=== PATIENT | male | born 1940 | race Caucasian/White ===

== ENCOUNTER → 2023-10-22 11:19 | Outpatient (REF) | payer MEDICARE, SELFPAY ==
[2023-10-22 12:04] LABS: % Basophils 1.2 % (0-2); % Eosinophils 4.5 % (0-6); % Immature Granulocytes 0.4 % (0-0.5); % Lymphocytes 26.8 % (20.5-51.1); % Monocytes 8.2 % (1.7-9.3); % Neutrophils 58.9 % (42.2-75.2); Absolute Basophils 0.1 10^3/uL (0-0.2); Absolute Eosinophils 0.2 10^3/uL (0-0.7); Absolute Lymphocytes 1.4 10^3/uL (1.2-3.4); Absolute Monocytes 0.4 10^3/uL (0.1-0.6); Hematocrit 30.1 % (39.0-52.0); Hemoglobin 9.5 g/dL (13.0-18.0); Mean Corp Hgb Conc. 31.6 g/dL (33.0-37.0); Mean Corpuscular Hgb 30.3 pg (27.0-31.0); Mean Corpuscular Volume 95.9 fL (80.0-94.0); Mean Platelet Volume 9.9 fL (7.4-10.4); Nucleated Red Blood Cells % 0 % (-); Platelet Count 225 10^3/uL (130-400); Red Blood Cell Count 3.14 10^6/uL (4.70-6.10); Red Cell Dist. Width 13.8 % (11.5-14.5); White Blood Cell Count 5.1 10^3/uL (4.8-10.8)
[2023-10-22 12:31] LABS: ALT (SGPT) 17 U/L (0-50); AST (SGOT) 23 U/L (17-59); Alkaline Phosphatase 128 U/L (38-126); Blood Urea Nitrogen 47 mg/dl (9-20); Calcium 9.3 mg/dl (8.4-10.2); Carbon Dioxide 24 mmol/L (22-30); Chloride 105 mmol/L (98-107); Glucose 87 mg/dl (70-99); Sodium 139 mmol/L (135-145); Total Bilirubin 0.3 mg/dl (0.2-1.3); Total Protein 6.7 g/dl (6.3-8.2); eGFR 30.28
[2023-10-22 12:49] LABS: Free T4 0.87 ng/dl (0.78-2.19); Vitamin D, 25-OH*** 62.2 ng/mL (30-80)
[2023-10-22 13:03] LABS: PSA, Total - Diagnostic 3.86 ng/ml (0.0-4.0); TSH 1.89 uIU/ml (0.47-4.68)
[2023-10-22 13:39] LABS: Folate 14.6 ng/ml (2.76-20); Vitamin B12 537 pg/ml (239-931)
[2023-10-24 12:09] LABS: % Free Testosterone 0.6 % (1.6-2.9); Free Testosterone 10 pg/mL (47-244); Sex Hormone Binding Globulin 141 nmol/L (19-76); Total Testosterone 162 ng/dL (300-720)
== END ==
LOC: REG 11:19
PROVIDERS: ATTENDING PHYSICIAN Internal Medicine Endocrinology, Diabetes & Metabolism; FAMILY PHYSICIAN Internal Medicine; OTHER PHYSICIAN Specialist; REFERRING PHYSICIAN Internal Medicine Cardiovascular Disease
DX: I10 Essential (primary) hypertension (principal); Z85.038 Personal history of other malignant neoplasm of large intestine; N18.32 Chronic kidney disease, stage 3b; N40.0 Benign prostatic hyperplasia without lower urinary tract symptoms
CPT/HCPCS: 36415; 80053; 82306; 82607; 82746; 84153; 84270; 84402; 84403; 84439; 84443; 85025

== ENCOUNTER → 2023-11-15 09:57 | Outpatient (REF) | payer MEDICARE, SELFPAY ==
[2023-11-15 12:39] LABS: Glycohemoglobin (HgbA1c) 5.6 % (4.0-5.6)
== END ==
LOC: REG 09:57
PROVIDERS: ATTENDING PHYSICIAN Orthopaedic Surgery Adult Reconstructive Orthopaedic Surgery; FAMILY PHYSICIAN Internal Medicine
DX: R73.09 Other abnormal glucose (principal)
CPT/HCPCS: 36415; 83036

== ENCOUNTER → 2023-11-27 10:21 | Outpatient (REF) | payer MEDICARE, SELFPAY ==
[2023-11-27 11:18] LABS: % Basophils 1.5 % (0-2); % Eosinophils 3.8 % (0-6); % Monocytes 7.8 % (1.7-9.3); % Neutrophils 57.9 % (42.2-75.2); Absolute Basophils 0.1 10^3/uL (0-0.2); Absolute Eosinophils 0.2 10^3/uL (0-0.7); Absolute Lymphocytes 1.4 10^3/uL (1.2-3.4); Absolute Monocytes 0.4 10^3/uL (0.1-0.6); Absolute Neutrophils 2.8 10^3/uL (1.4-6.5); Hematocrit 29.5 % (39.0-52.0); Hemoglobin 9.6 g/dL (13.0-18.0); Mean Corp Hgb Conc. 32.5 g/dL (33.0-37.0); Mean Corpuscular Hgb 30.5 pg (27.0-31.0); Mean Corpuscular Volume 93.7 fL (80.0-94.0); Mean Platelet Volume 10.5 fL (7.4-10.4); Nucleated Red Blood Cells % 0 % (-); Platelet Count 200 10^3/uL (130-400); Red Blood Cell Count 3.15 10^6/uL (4.70-6.10); Red Cell Dist. Width 13.6 % (11.5-14.5); White Blood Cell Count 4.8 10^3/uL (4.8-10.8)
[2023-11-27 12:35] LABS: Albumin 3.6 g/dl (3.5-5.0); Blood Urea Nitrogen 35 mg/dl (9-20); Calcium 9.4 mg/dl (8.4-10.2); Carbon Dioxide 26 mmol/L (22-30); Chloride 109 mmol/L (98-107); Glucose 91 mg/dl (70-99); Iron 115 ug/dl (49-181); Phosphorus 4.2 mg/dl (2.5-4.5); Potassium 4.4 mmol/L (3.5-5.1); Sodium 142 mmol/L (135-145); eGFR 27.15
[2023-11-27 12:37] LABS: Calcium 9.4 mg/dl (8.4-10.2); Phosphorus 4.2 mg/dl (2.5-4.5)
[2023-11-27 12:44] LABS: Percent Saturation 57 % (20-50); Total Iron Binding Capacity 200 ug/dl (261-462)
[2023-11-28 16:47] LABS: Alk Phos Bone Specific Results 15.6 ug/L (6.5-20.1)
[2023-11-29 01:45] LABS: Vitamin D 1,25 Dihydroxy 14.9 pg/mL (19.9-79.3)
[2023-11-29 18:11] LABS: Intact PTH 63.1 pg/ml (13.6-85.8)
== END ==
LOC: REG 10:21
PROVIDERS: ATTENDING PHYSICIAN Specialist; FAMILY PHYSICIAN Internal Medicine Endocrinology, Diabetes & Metabolism
DX: D64.9 Anemia, unspecified (principal); N18.32 Chronic kidney disease, stage 3b; I10 Essential (primary) hypertension; N26.9 Renal sclerosis, unspecified; N40.1 Benign prostatic hyperplasia with lower urinary tract symptoms; R35.1 Nocturia; M25.60 Stiffness of unspecified joint, not elsewhere classified; I35.0 Nonrheumatic aortic (valve) stenosis; Z87.81 Personal history of (healed) traumatic fracture; N17.9 Acute kidney failure, unspecified; M81.0 Age-related osteoporosis without current pathological fracture
CPT/HCPCS: 36415; 80069; 82652; 83002; 83540; 83550; 83970; 84075; 84100; 84146; 84155; 84165; 85025

== ENCOUNTER → 2023-12-08 10:13 | Outpatient (REF) | payer MEDICARE, SELFPAY ==
[2023-12-08 11:10] LABS: 24 Hour Urine Total Volume 600 ml
[2023-12-08 12:11] LABS: 24 Hour Urine Calcium 7.8 mg/day; 24 Hour Urine Creatinine 0.247 gm/day (1.0-2.0); Urine Calcium 1.3 mg/dl
== END ==
LOC: REG 10:13
PROVIDERS: ATTENDING PHYSICIAN Internal Medicine Endocrinology, Diabetes & Metabolism
DX: M81.0 Age-related osteoporosis without current pathological fracture (principal)
CPT/HCPCS: 81050; 82340; 82570

== ENCOUNTER → 2023-12-23 13:24 | Outpatient (REF) | payer MEDICARE, SELFPAY | LOC: HWRAD 13:24 | PROVIDERS: ATTENDING PHYSICIAN Specialist; FAMILY PHYSICIAN Internal Medicine | DX: I10 Essential (primary) hypertension (principal); D50.0 Iron deficiency anemia secondary to blood loss (chronic); R60.9 Edema, unspecified; N18.32 Chronic kidney disease, stage 3b | CPT/HCPCS: 76770 ==

== ENCOUNTER → 2023-12-24 08:32 | Outpatient (REF) | payer MEDICARE, SELFPAY | LOC: HWRAD 08:32 | PROVIDERS: ATTENDING PHYSICIAN Internal Medicine Endocrinology, Diabetes & Metabolism; FAMILY PHYSICIAN Internal Medicine | DX: M81.0 Age-related osteoporosis without current pathological fracture (principal) | CPT/HCPCS: 76700 ==

== ENCOUNTER → 2024-01-10 09:30 | Outpatient (REF) | payer MEDICARE, SELFPAY ==
[2024-01-10 11:23] LABS: Calcium 9.1 mg/dl (8.4-10.2)
[2024-01-10 11:52] LABS: Intact PTH 93.9 pg/ml (13.6-85.8)
== END ==
LOC: REG 09:30
PROVIDERS: ATTENDING PHYSICIAN Internal Medicine Endocrinology, Diabetes & Metabolism; FAMILY PHYSICIAN Internal Medicine
DX: M81.0 Age-related osteoporosis without current pathological fracture (principal)
CPT/HCPCS: 36415; 83970

== ENCOUNTER → 2024-01-19 15:43 | Outpatient (REF) | payer MEDICARE, SELFPAY ==
[2024-01-19 17:33] LABS: % Eosinophils 4.8 % (0-6); % Immature Granulocytes 0.9 % (0-0.5); % Lymphocytes 18.7 % (20.5-51.1); % Monocytes 11.2 % (1.7-9.3); % Neutrophils 63.4 % (42.2-75.2); Absolute Basophils 0.1 10^3/uL (0-0.2); Absolute Eosinophils 0.3 10^3/uL (0-0.7); Absolute Immature Granulocytes 0.1 10^3/uL (0-0.05); Absolute Lymphocytes 1.3 10^3/uL (1.2-3.4); Absolute Monocytes 0.8 10^3/uL (0.1-0.6); Absolute Neutrophils 4.3 10^3/uL (1.4-6.5); Hematocrit 22.5 % (39.0-52.0); Hemoglobin 7.6 g/dL (13.0-18.0); Mean Corp Hgb Conc. 33.8 g/dL (33.0-37.0); Mean Corpuscular Hgb 30.3 pg (27.0-31.0); Mean Corpuscular Volume 89.6 fL (80.0-94.0); Nucleated Red Blood Cells % 0 % (-); Platelet Count 312 10^3/uL (130-400); Red Blood Cell Count 2.51 10^6/uL (4.70-6.10); Red Cell Dist. Width 14.7 % (11.5-14.5); White Blood Cell Count 6.7 10^3/uL (4.8-10.8)
[2024-01-19 17:57] LABS: Albumin 3.5 g/dl (3.5-5.0); Blood Urea Nitrogen 45 mg/dl (9-20); Calcium 8.9 mg/dl (8.4-10.2); Carbon Dioxide 19 mmol/L (22-30); Chloride 110 mmol/L (98-107); Glucose 108 mg/dl (70-99); Iron 48 ug/dl (49-181); Phosphorus 4.3 mg/dl (2.5-4.5); Potassium 4.8 mmol/L (3.5-5.1); Sodium 139 mmol/L (135-145); eGFR 23.43
[2024-01-19 18:06] LABS: Percent Saturation 26 % (20-50); Total Iron Binding Capacity 179 ug/dl (261-462)
== END ==
LOC: REG 15:43
PROVIDERS: ATTENDING PHYSICIAN Specialist; FAMILY PHYSICIAN Internal Medicine
DX: N17.9 Acute kidney failure, unspecified (principal); N18.32 Chronic kidney disease, stage 3b
CPT/HCPCS: 36415; 80069; 83540; 83550; 83970; 85025

== ENCOUNTER → 2024-01-30 13:17 | Outpatient (REF) | payer MEDICARE, SELFPAY ==
[2024-01-30 14:50] LABS: % Basophils 1.8 % (0-2); % Eosinophils 3.8 % (0-6); % Immature Granulocytes 0.4 % (0-0.5); % Lymphocytes 16.3 % (20.5-51.1); % Monocytes 7.2 % (1.7-9.3); % Neutrophils 70.5 % (42.2-75.2); Absolute Basophils 0.1 10^3/uL (0-0.2); Absolute Eosinophils 0.2 10^3/uL (0-0.7); Absolute Lymphocytes 0.9 10^3/uL (1.2-3.4); Absolute Monocytes 0.4 10^3/uL (0.1-0.6); Absolute Neutrophils 3.9 10^3/uL (1.4-6.5); Hematocrit 21.3 % (39.0-52.0); Hemoglobin 7.2 g/dL (13.0-18.0); Mean Corp Hgb Conc. 33.8 g/dL (33.0-37.0); Mean Corpuscular Hgb 30.6 pg (27.0-31.0); Mean Corpuscular Volume 90.6 fL (80.0-94.0); Mean Platelet Volume 9.4 fL (7.4-10.4); Nucleated Red Blood Cells % 0 % (-); Platelet Count 452 10^3/uL (130-400); Red Blood Cell Count 2.35 10^6/uL (4.70-6.10); Red Cell Dist. Width 15.1 % (11.5-14.5); White Blood Cell Count 5.6 10^3/uL (4.8-10.8)
[2024-01-30 15:32] LABS: Blood Urea Nitrogen 32 mg/dl (9-20); Calcium 8.9 mg/dl (8.4-10.2); Carbon Dioxide 25 mmol/L (22-30); Chloride 107 mmol/L (98-107); Glucose 125 mg/dl (70-99); Potassium 4.8 mmol/L (3.5-5.1); Sodium 138 mmol/L (135-145); eGFR 25.63
[2024-01-31 11:39] LABS: Intact PTH 58.8 pg/ml (13.6-85.8)
== END ==
LOC: REG 13:17
PROVIDERS: ATTENDING PHYSICIAN Specialist; FAMILY PHYSICIAN Internal Medicine
DX: N26.9 Renal sclerosis, unspecified (principal); E78.2 Mixed hyperlipidemia; I10 Essential (primary) hypertension; N18.4 Chronic kidney disease, stage 4 (severe); D50.0 Iron deficiency anemia secondary to blood loss (chronic)
CPT/HCPCS: 36415; 80048; 83970; 85025

== ENCOUNTER → 2024-03-15 12:15 | Outpatient (REF) | payer MEDICARE, SELFPAY ==
[2024-03-15 13:26] LABS: % Basophils 1.2 % (0-2); % Immature Granulocytes 0.2 % (0-0.5); % Lymphocytes 26.9 % (20.5-51.1); % Monocytes 9.3 % (1.7-9.3); % Neutrophils 58.4 % (42.2-75.2); Absolute Basophils 0.1 10^3/uL (0-0.2); Absolute Eosinophils 0.2 10^3/uL (0-0.7); Absolute Lymphocytes 1.2 10^3/uL (1.2-3.4); Absolute Monocytes 0.4 10^3/uL (0.1-0.6); Absolute Neutrophils 2.5 10^3/uL (1.4-6.5); Hemoglobin 8.5 g/dL (13.0-18.0); Mean Corp Hgb Conc. 32.7 g/dL (33.0-37.0); Mean Corpuscular Hgb 32.2 pg (27.0-31.0); Mean Corpuscular Volume 98.5 fL (80.0-94.0); Mean Platelet Volume 10.6 fL (7.4-10.4); Nucleated Red Blood Cells % 0 % (-); Platelet Count 198 10^3/uL (130-400); Red Blood Cell Count 2.64 10^6/uL (4.70-6.10); White Blood Cell Count 4.3 10^3/uL (4.8-10.8)
[2024-03-15 15:35] LABS: ALT (SGPT) 17 U/L (0-50); AST (SGOT) 26 U/L (17-59); Albumin 3.7 g/dl (3.5-5.0); Alkaline Phosphatase 89 U/L (38-126); Blood Urea Nitrogen 39 mg/dl (9-20); Calcium 7.3 mg/dl (8.4-10.2); Carbon Dioxide 20 mmol/L (22-30); Chloride 113 mmol/L (98-107); Glucose 109 mg/dl (70-99); Potassium 5.7 mmol/L (3.5-5.1); Sodium 143 mmol/L (135-145); Total Bilirubin 0.4 mg/dl (0.2-1.3); Total Protein 6.3 g/dl (6.3-8.2); eGFR 30.09
== END ==
LOC: REG 12:15
PROVIDERS: ATTENDING PHYSICIAN Internal Medicine Cardiovascular Disease; FAMILY PHYSICIAN Internal Medicine
DX: D50.0 Iron deficiency anemia secondary to blood loss (chronic) (principal)
CPT/HCPCS: 36415; 80053; 85025

== ENCOUNTER → 2024-03-26 07:31 | Outpatient (REF) | payer MEDICARE, SELFPAY | LOC: RAD 07:31 | PROVIDERS: ATTENDING PHYSICIAN Internal Medicine Cardiovascular Disease; FAMILY PHYSICIAN Internal Medicine | DX: I71.21 Aneurysm of the ascending aorta, without rupture (principal) | CPT/HCPCS: 76770 ==

== ENCOUNTER → 2024-03-27 10:32 | Outpatient (REF) | payer MEDICARE, SELFPAY ==
[2024-03-27 11:37] LABS: % Basophils 1.7 % (0-2); % Eosinophils 3.4 % (0-6); % Immature Granulocytes 0.3 % (0-0.5); % Lymphocytes 31.9 % (20.5-51.1); % Monocytes 6.6 % (1.7-9.3); % Neutrophils 56.1 % (42.2-75.2); Absolute Basophils 0.1 10^3/uL (0-0.2); Absolute Eosinophils 0.1 10^3/uL (0-0.7); Absolute Lymphocytes 1.1 10^3/uL (1.2-3.4); Absolute Monocytes 0.2 10^3/uL (0.1-0.6); Hematocrit 27.6 % (39.0-52.0); Hemoglobin 8.9 g/dL (13.0-18.0); Mean Corp Hgb Conc. 32.2 g/dL (33.0-37.0); Mean Corpuscular Hgb 30.5 pg (27.0-31.0); Mean Corpuscular Volume 94.5 fL (80.0-94.0); Mean Platelet Volume 10.2 fL (7.4-10.4); Nucleated Red Blood Cells % 0 % (-); Platelet Count 218 10^3/uL (130-400); Red Blood Cell Count 2.92 10^6/uL (4.70-6.10); Red Cell Dist. Width 14.6 % (11.5-14.5); White Blood Cell Count 3.5 10^3/uL (4.8-10.8)
[2024-03-27 12:02] LABS: Albumin 3.8 g/dl (3.5-5.0); Blood Urea Nitrogen 31 mg/dl (9-20); Calcium 7.8 mg/dl (8.4-10.2); Carbon Dioxide 16 mmol/L (22-30); Chloride 114 mmol/L (98-107); Glucose 99 mg/dl (70-99); Phosphorus 3.5 mg/dl (2.5-4.5); Potassium 5.7 mmol/L (3.5-5.1); Sodium 143 mmol/L (135-145); eGFR 28.46
[2024-03-28 23:17] LABS: Erythropoietin (EPO) 10 mU/mL (4-27)
== END ==
LOC: REG 10:32
PROVIDERS: ATTENDING PHYSICIAN Specialist; FAMILY PHYSICIAN Internal Medicine; REFERRING PHYSICIAN Internal Medicine Cardiovascular Disease
DX: N18.32 Chronic kidney disease, stage 3b (principal); E87.5 Hyperkalemia; D64.9 Anemia, unspecified
CPT/HCPCS: 36415; 80069; 82668; 85025

== ENCOUNTER → 2024-06-07 15:18 | Outpatient (REF) | payer MEDICARE, SELFPAY ==
[2024-06-07 15:22] LABS: % Basophils 0.7 % (0-2); % Eosinophils 3.5 % (0-6); % Immature Granulocytes 0.5 % (0-0.5); % Monocytes 10.6 % (1.7-9.3); % Neutrophils 47.7 % (42.2-75.2); Absolute Eosinophils 0.1 10^3/uL (0-0.7); Absolute Lymphocytes 1.5 10^3/uL (1.2-3.4); Absolute Monocytes 0.4 10^3/uL (0.1-0.6); Absolute Neutrophils 1.9 10^3/uL (1.4-6.5); Hematocrit 28.8 % (39.0-52.0); Hemoglobin 9.2 g/dL (13.0-18.0); Mean Corp Hgb Conc. 31.9 g/dL (33.0-37.0); Mean Corpuscular Hgb 30.7 pg (27.0-31.0); Mean Platelet Volume 9.9 fL (7.4-10.4); Nucleated Red Blood Cells % 0 % (-); Platelet Count 178 10^3/uL (130-400); Red Cell Dist. Width 14.6 % (11.5-14.5); White Blood Cell Count 4.1 10^3/uL (4.8-10.8)
[2024-06-07 15:46] LABS: Blood Urea Nitrogen 41 mg/dl (9-20); Iron 110 ug/dl (49-181)
[2024-06-07 15:55] LABS: Percent Saturation 53 % (20-50); Total Iron Binding Capacity 204 ug/dl (261-462)
[2024-06-07 16:21] LABS: Ferritin 91.8 ng/ml (17.9-464.0)
== END ==
LOC: OIDL 15:18
PROVIDERS: ATTENDING PHYSICIAN Internal Medicine Hematology & Oncology
DX: D63.1 Anemia in chronic kidney disease (principal); D72.810 Lymphocytopenia; D50.0 Iron deficiency anemia secondary to blood loss (chronic); N18.4 Chronic kidney disease, stage 4 (severe)
CPT/HCPCS: 82565; 82728; 83540; 83550; 84520; 85025

== ENCOUNTER → 2024-06-18 11:35 | Outpatient (REF) | payer MEDICARE, SELFPAY ==
[2024-06-18 14:52] LABS: % Basophils 1.3 % (0-2); % Immature Granulocytes 0.2 % (0-0.5); % Lymphocytes 24.9 % (20.5-51.1); % Monocytes 8.6 % (1.7-9.3); Absolute Basophils 0.1 10^3/uL (0-0.2); Absolute Eosinophils 0.2 10^3/uL (0-0.7); Absolute Lymphocytes 1.1 10^3/uL (1.2-3.4); Absolute Monocytes 0.4 10^3/uL (0.1-0.6); Absolute Neutrophils 2.8 10^3/uL (1.4-6.5); Hematocrit 29.1 % (39.0-52.0); Hemoglobin 9.3 g/dL (13.0-18.0); Mean Corpuscular Hgb 31.7 pg (27.0-31.0); Mean Corpuscular Volume 99.3 fL (80.0-94.0); Mean Platelet Volume 9.5 fL (7.4-10.4); Nucleated Red Blood Cells % 0 % (-); Platelet Count 257 10^3/uL (130-400); Red Blood Cell Count 2.93 10^6/uL (4.70-6.10); Red Cell Dist. Width 16.7 % (11.5-14.5); White Blood Cell Count 4.5 10^3/uL (4.8-10.8)
[2024-06-18 15:12] LABS: Albumin 4.1 g/dl (3.5-5.0); Blood Urea Nitrogen 47 mg/dl (9-20); Calcium 8.3 mg/dl (8.4-10.2); Carbon Dioxide 18 mmol/L (22-30); Chloride 111 mmol/L (98-107); Glucose 79 mg/dl (70-99); Phosphorus 3.7 mg/dl (2.5-4.5); Potassium 5.4 mmol/L (3.5-5.1); Sodium 141 mmol/L (135-145); eGFR 25.63
[2024-06-19 08:44] LABS: Glycohemoglobin (HgbA1c) 5.1 % (4.0-5.6)
== END ==
LOC: REG 11:35
PROVIDERS: ATTENDING PHYSICIAN Orthopaedic Surgery Adult Reconstructive Orthopaedic Surgery; FAMILY PHYSICIAN Internal Medicine Hematology & Oncology; OTHER PHYSICIAN Internal Medicine; REFERRING PHYSICIAN Specialist
DX: R73.09 Other abnormal glucose (principal); D63.1 Anemia in chronic kidney disease; D72.810 Lymphocytopenia; D50.0 Iron deficiency anemia secondary to blood loss (chronic); N18.4 Chronic kidney disease, stage 4 (severe)
CPT/HCPCS: 36415; 80069; 83036; 83970; 85025

== ENCOUNTER → 2024-07-03 09:13 | Outpatient (REF) | payer MEDICARE, SELFPAY ==
[2024-07-03 10:08] LABS: Hematocrit 34.4 % (39.0-52.0); Hemoglobin 11.2 g/dL (13.0-18.0); Mean Corp Hgb Conc. 32.6 g/dL (33.0-37.0); Mean Corpuscular Hgb 32.4 pg (27.0-31.0); Mean Corpuscular Volume 99.4 fL (80.0-94.0); Mean Platelet Volume 9.7 fL (7.4-10.4); Platelet Count 196 10^3/uL (130-400); Red Blood Cell Count 3.46 10^6/uL (4.70-6.10); White Blood Cell Count 4.1 10^3/uL (4.8-10.8)
[2024-07-03 10:40] LABS: Blood Urea Nitrogen 42 mg/dl (9-20); Calcium 7.6 mg/dl (8.4-10.2); Carbon Dioxide 24 mmol/L (22-30); Chloride 112 mmol/L (98-107); Glucose 92 mg/dl (70-99); Phosphorus 3.9 mg/dl (2.5-4.5); Potassium 5.1 mmol/L (3.5-5.1); Sodium 143 mmol/L (135-145); eGFR 25.63
[2024-07-03 10:52] LABS: Intact PTH 563.4 pg/ml (13.6-85.8)
== END ==
LOC: REG 09:13
PROVIDERS: ATTENDING PHYSICIAN Specialist; FAMILY PHYSICIAN Internal Medicine; REFERRING PHYSICIAN Internal Medicine Hematology & Oncology
DX: N18.4 Chronic kidney disease, stage 4 (severe) (principal); D63.1 Anemia in chronic kidney disease; D72.810 Lymphocytopenia; D50.0 Iron deficiency anemia secondary to blood loss (chronic)
CPT/HCPCS: 36415; 80069; 83970; 85027

== ENCOUNTER → 2024-07-17 09:38 | Outpatient (REF) | payer MEDICARE, SELFPAY ==
[2024-07-17 10:47] LABS: Hematocrit 30.7 % (39.0-52.0); Hemoglobin 10.1 g/dL (13.0-18.0); Mean Corp Hgb Conc. 32.9 g/dL (33.0-37.0); Mean Corpuscular Hgb 32.6 pg (27.0-31.0); Mean Platelet Volume 10.2 fL (7.4-10.4); Platelet Count 160 10^3/uL (130-400); Red Cell Dist. Width 16.1 % (11.5-14.5); White Blood Cell Count 4.1 10^3/uL (4.8-10.8)
[2024-07-17 10:57] LABS: Albumin 3.8 g/dl (3.5-5.0); Blood Urea Nitrogen 51 mg/dl (9-20); Calcium 7.9 mg/dl (8.4-10.2); Carbon Dioxide 19 mmol/L (22-30); Chloride 114 mmol/L (98-107); Glucose 96 mg/dl (70-99); Phosphorus 4.1 mg/dl (2.5-4.5); Sodium 141 mmol/L (135-145); eGFR 25.63
[2024-07-17 11:03] LABS: Potassium 4.8 mmol/L (3.5-5.1)
[2024-07-17 11:06] LABS: Intact PTH 553.2 pg/ml (13.6-85.8)
== END ==
LOC: REG 09:38
PROVIDERS: ATTENDING PHYSICIAN Internal Medicine Hematology & Oncology; FAMILY PHYSICIAN Internal Medicine; REFERRING PHYSICIAN Specialist
DX: D63.1 Anemia in chronic kidney disease (principal); D72.810 Lymphocytopenia; D50.0 Iron deficiency anemia secondary to blood loss (chronic); N18.4 Chronic kidney disease, stage 4 (severe); R79.89 Other specified abnormal findings of blood chemistry; I10 Essential (primary) hypertension; D72.819 Decreased white blood cell count, unspecified
CPT/HCPCS: 36415; 80069; 83970; 85014; 85018; 85027

== ENCOUNTER → 2024-08-05 11:18 | Outpatient (REF) | payer MEDICARE, SELFPAY ==
[2024-08-05 12:33] LABS: % Basophils 0.5 % (0-2); % Eosinophils 0.5 % (0-6); % Immature Granulocytes 0.5 % (0-0.5); % Lymphocytes 6.8 % (20.5-51.1); % Monocytes 8.1 % (1.7-9.3); % Neutrophils 83.6 % (42.2-75.2); Absolute Lymphocytes 0.5 10^3/uL (1.2-3.4); Absolute Monocytes 0.6 10^3/uL (0.1-0.6); Absolute Neutrophils 6.7 10^3/uL (1.4-6.5); Mean Corpuscular Hgb 31.9 pg (27.0-31.0); Mean Corpuscular Volume 99.6 fL (80.0-94.0); Mean Platelet Volume 10.3 fL (7.4-10.4); Nucleated Red Blood Cells % 0 % (-); Platelet Count 149 10^3/uL (130-400); Red Blood Cell Count 2.51 10^6/uL (4.70-6.10); Red Cell Dist. Width 15.7 % (11.5-14.5)
[2024-08-05 13:01] LABS: Albumin 3.3 g/dl (3.5-5.0); Blood Urea Nitrogen 56 mg/dl (9-20); Carbon Dioxide 20 mmol/L (22-30); Chloride 109 mmol/L (98-107); Glucose 125 mg/dl (70-99); Phosphorus 2.9 mg/dl (2.5-4.5); Potassium 4.4 mmol/L (3.5-5.1); Sodium 138 mmol/L (135-145); eGFR 22.26
[2024-08-05 14:26] LABS: Vitamin D, 25-OH*** 47.6 ng/mL (30-80)
[2024-08-07 10:21] LABS: Intact PTH 366.8 pg/ml (13.6-85.8)
== END ==
LOC: REG 11:18
PROVIDERS: ATTENDING PHYSICIAN Specialist; FAMILY PHYSICIAN Internal Medicine
DX: R79.89 Other specified abnormal findings of blood chemistry (principal); I10 Essential (primary) hypertension; N18.4 Chronic kidney disease, stage 4 (severe); D72.819 Decreased white blood cell count, unspecified; D63.1 Anemia in chronic kidney disease; N18.32 Chronic kidney disease, stage 3b; R60.9 Edema, unspecified; E55.9 Vitamin D deficiency, unspecified; D64.9 Anemia, unspecified; I35.0 Nonrheumatic aortic (valve) stenosis; D50.0 Iron deficiency anemia secondary to blood loss (chronic)
CPT/HCPCS: 36415; 80069; 82306; 83970; 85025

== ENCOUNTER → 2024-08-13 13:11 | Outpatient (REF) | payer MEDICARE, SELFPAY ==
[2024-08-13 14:43] LABS: % Eosinophils 3.5 % (0-6); % Immature Granulocytes 0.8 % (0-0.5); % Lymphocytes 17.1 % (20.5-51.1); % Monocytes 7.3 % (1.7-9.3); % Neutrophils 70.3 % (42.2-75.2); Absolute Basophils 0.1 10^3/uL (0-0.2); Absolute Eosinophils 0.2 10^3/uL (0-0.7); Absolute Immature Granulocytes 0.1 10^3/uL (0-0.05); Absolute Monocytes 0.4 10^3/uL (0.1-0.6); Absolute Neutrophils 4.3 10^3/uL (1.4-6.5); Hematocrit 24.5 % (39.0-52.0); Hemoglobin 7.8 g/dL (13.0-18.0); Mean Corp Hgb Conc. 31.8 g/dL (33.0-37.0); Mean Corpuscular Hgb 32.2 pg (27.0-31.0); Mean Corpuscular Volume 101.2 fL (80.0-94.0); Mean Platelet Volume 9.6 fL (7.4-10.4); Nucleated Red Blood Cells % 0 % (-); Platelet Count 415 10^3/uL (130-400); Red Blood Cell Count 2.42 10^6/uL (4.70-6.10); Red Cell Dist. Width 14.9 % (11.5-14.5)
[2024-08-13 15:17] LABS: ALT (SGPT) 20 U/L (0-50); AST (SGOT) 24 U/L (17-59); Albumin 3.5 g/dl (3.5-5.0); Alkaline Phosphatase 64 U/L (38-126); Blood Urea Nitrogen 57 mg/dl (9-20); Calcium 8.6 mg/dl (8.4-10.2); Calcium 8.7 mg/dl (8.4-10.2); Carbon Dioxide 23 mmol/L (22-30); Chloride 106 mmol/L (98-107); Glucose 78 mg/dl (70-99); Potassium 5.1 mmol/L (3.5-5.1); Sodium 139 mmol/L (135-145); Total Bilirubin 0.3 mg/dl (0.2-1.3); Total Protein 6.2 g/dl (6.3-8.2); eGFR 24.41
[2024-08-14 09:41] LABS: Intact PTH 244.4 pg/ml (13.6-85.8)
== END ==
LOC: REG 13:11
PROVIDERS: ATTENDING PHYSICIAN Internal Medicine Hematology & Oncology; FAMILY PHYSICIAN Internal Medicine; OTHER PHYSICIAN Internal Medicine Endocrinology, Diabetes & Metabolism; REFERRING PHYSICIAN Specialist
DX: D63.1 Anemia in chronic kidney disease (principal); D72.810 Lymphocytopenia; D50.0 Iron deficiency anemia secondary to blood loss (chronic); N18.4 Chronic kidney disease, stage 4 (severe); R79.89 Other specified abnormal findings of blood chemistry; I10 Essential (primary) hypertension; I35.0 Nonrheumatic aortic (valve) stenosis; D64.9 Anemia, unspecified; E55.9 Vitamin D deficiency, unspecified; E83.51 Hypocalcemia
CPT/HCPCS: 36415; 80053; 83970; 85025

== ENCOUNTER → 2024-08-20 13:12 | Outpatient (REF) | payer MEDICARE, SELFPAY ==
[2024-08-20 14:36] LABS: % Basophils 1.5 % (0-2); % Eosinophils 4.1 % (0-6); % Immature Granulocytes 0.3 % (0-0.5); % Lymphocytes 22.8 % (20.5-51.1); % Monocytes 7.7 % (1.7-9.3); % Neutrophils 63.6 % (42.2-75.2); Absolute Basophils 0.1 10^3/uL (0-0.2); Absolute Eosinophils 0.2 10^3/uL (0-0.7); Absolute Lymphocytes 1.3 10^3/uL (1.2-3.4); Absolute Monocytes 0.5 10^3/uL (0.1-0.6); Absolute Neutrophils 3.7 10^3/uL (1.4-6.5); Hematocrit 24.2 % (39.0-52.0); Hemoglobin 7.7 g/dL (13.0-18.0); Mean Corp Hgb Conc. 31.8 g/dL (33.0-37.0); Mean Corpuscular Hgb 32.2 pg (27.0-31.0); Mean Corpuscular Volume 101.3 fL (80.0-94.0); Mean Platelet Volume 9.5 fL (7.4-10.4); Nucleated Red Blood Cells % 0 % (-); Platelet Count 397 10^3/uL (130-400); Red Blood Cell Count 2.39 10^6/uL (4.70-6.10); Red Cell Dist. Width 14.8 % (11.5-14.5); White Blood Cell Count 5.9 10^3/uL (4.8-10.8)
[2024-08-20 15:00] LABS: ALT (SGPT) 18 U/L (0-50); AST (SGOT) 22 U/L (17-59); Albumin 3.7 g/dl (3.5-5.0); Alkaline Phosphatase 74 U/L (38-126); Blood Urea Nitrogen 43 mg/dl (9-20); Calcium 8.7 mg/dl (8.4-10.2); Carbon Dioxide 24 mmol/L (22-30); Chloride 107 mmol/L (98-107); Glucose 87 mg/dl (70-99); Potassium 5.6 mmol/L (3.5-5.1); Sodium 139 mmol/L (135-145); Total Bilirubin 0.6 mg/dl (0.2-1.3); Total Protein 6.2 g/dl (6.3-8.2); eGFR 23.29
[2024-08-20 15:08] LABS: Intact PTH 226.9 pg/ml (13.6-85.8)
== END ==
LOC: REG 13:12
PROVIDERS: ATTENDING PHYSICIAN Internal Medicine Endocrinology, Diabetes & Metabolism; FAMILY PHYSICIAN Internal Medicine; OTHER PHYSICIAN Specialist; REFERRING PHYSICIAN Internal Medicine Hematology & Oncology
DX: E83.51 Hypocalcemia (principal); D63.1 Anemia in chronic kidney disease; D72.810 Lymphocytopenia; D50.0 Iron deficiency anemia secondary to blood loss (chronic); N18.4 Chronic kidney disease, stage 4 (severe)
CPT/HCPCS: 36415; 80053; 83970; 85025

== ENCOUNTER → 2024-09-23 13:28 | Outpatient (REF) | payer MEDICARE, SELFPAY ==
[2024-09-23 15:09] LABS: Blood Urea Nitrogen 53 mg/dl (9-20); Calcium 9.7 mg/dl (8.4-10.2); Carbon Dioxide 26 mmol/L (22-30); Chloride 103 mmol/L (98-107); Glucose 102 mg/dl (70-99); Phosphorus 4.8 mg/dl (2.5-4.5); Potassium 4.7 mmol/L (3.5-5.1); Sodium 139 mmol/L (135-145); eGFR 21.31
[2024-09-25 10:51] LABS: Intact PTH 82.9 pg/ml (13.6-85.8)
== END ==
LOC: REG 13:28
PROVIDERS: ATTENDING PHYSICIAN Specialist; FAMILY PHYSICIAN Internal Medicine
DX: R79.89 Other specified abnormal findings of blood chemistry (principal); N26.9 Renal sclerosis, unspecified; E78.2 Mixed hyperlipidemia; N18.4 Chronic kidney disease, stage 4 (severe)
CPT/HCPCS: 36415; 80069; 83970

== ENCOUNTER → 2024-10-30 08:41 | Outpatient (REF) | payer MEDICARE, SELFPAY ==
[2024-10-30 10:11] LABS: Blood Urea Nitrogen 62 mg/dl (9-20); Carbon Dioxide 30 mmol/L (22-30); Chloride 107 mmol/L (98-107); Glucose 93 mg/dl (70-99); Phosphorus 4.6 mg/dl (2.5-4.5); Potassium 4.9 mmol/L (3.5-5.1); Sodium 143 mmol/L (135-145); eGFR 20.43
[2024-10-30 10:19] LABS: Intact PTH 44.8 pg/ml (13.6-85.8)
== END ==
LOC: REG 08:41
PROVIDERS: ATTENDING PHYSICIAN Specialist; FAMILY PHYSICIAN Internal Medicine
DX: N18.4 Chronic kidney disease, stage 4 (severe) (principal)
CPT/HCPCS: 36415; 80069; 83970

== ENCOUNTER → 2024-11-03 14:15 | Outpatient (REF) | payer MEDICARE, SELFPAY ==
[2024-11-03 16:30] LABS: % Basophils 1.4 % (0-2); % Eosinophils 5.3 % (0-6); % Immature Granulocytes 0.2 % (0-0.5); % Lymphocytes 32.5 % (20.5-51.1); % Monocytes 8.8 % (1.7-9.3); % Neutrophils 51.8 % (42.2-75.2); Absolute Basophils 0.1 10^3/uL (0-0.2); Absolute Eosinophils 0.3 10^3/uL (0-0.7); Absolute Lymphocytes 1.7 10^3/uL (1.2-3.4); Absolute Monocytes 0.5 10^3/uL (0.1-0.6); Absolute Neutrophils 2.7 10^3/uL (1.4-6.5); Hematocrit 30.3 % (39.0-52.0); Mean Corpuscular Hgb 32.1 pg (27.0-31.0); Mean Corpuscular Volume 97.1 fL (80.0-94.0); Mean Platelet Volume 10.4 fL (7.4-10.4); Nucleated Red Blood Cells % 0 % (-); Platelet Count 183 10^3/uL (130-400); Red Blood Cell Count 3.12 10^6/uL (4.70-6.10); Red Cell Dist. Width 14.3 % (11.5-14.5); White Blood Cell Count 5.1 10^3/uL (4.8-10.8)
== END ==
LOC: REG 14:15
PROVIDERS: ATTENDING PHYSICIAN Internal Medicine Hematology & Oncology; FAMILY PHYSICIAN Internal Medicine; OTHER PHYSICIAN Specialist
DX: R79.89 Other specified abnormal findings of blood chemistry (principal); E78.2 Mixed hyperlipidemia; I10 Essential (primary) hypertension; D63.1 Anemia in chronic kidney disease; D72.810 Lymphocytopenia; D50.0 Iron deficiency anemia secondary to blood loss (chronic); N18.4 Chronic kidney disease, stage 4 (severe)
CPT/HCPCS: 36415; 85025

== ENCOUNTER → 2024-11-12 08:52 | Outpatient (REF) | payer MEDICARE, SELFPAY ==
[2024-11-12 10:32] LABS: Blood Urea Nitrogen 56 mg/dl (9-20); Calcium 8.9 mg/dl (8.4-10.2); Carbon Dioxide 24 mmol/L (22-30); Chloride 110 mmol/L (98-107); Glucose 119 mg/dl (70-99); Sodium 145 mmol/L (135-145); eGFR 21.31
== END ==
LOC: REG 08:52
PROVIDERS: ATTENDING PHYSICIAN Specialist; FAMILY PHYSICIAN Internal Medicine
DX: R79.89 Other specified abnormal findings of blood chemistry (principal); E78.2 Mixed hyperlipidemia; I10 Essential (primary) hypertension; D63.1 Anemia in chronic kidney disease
CPT/HCPCS: 36415; 80048

== ENCOUNTER → 2025-01-10 13:03 | Outpatient (REF) | payer MEDICARE, SELFPAY | LOC: RAD 13:03 | PROVIDERS: ATTENDING PHYSICIAN Specialist; FAMILY PHYSICIAN Internal Medicine | DX: N13.30 Unspecified hydronephrosis (principal) | CPT/HCPCS: 76770 ==

== ENCOUNTER → 2025-02-14 12:49 | Outpatient (REF) | payer MEDICARE, SELFPAY ==
[2025-02-14 14:47] LABS: Albumin 4.0 g/dl (3.5-5.0); Blood Urea Nitrogen 56 mg/dl (9-20); Calcium 10.1 mg/dl (8.4-10.2); Carbon Dioxide 30 mmol/L (22-30); Chloride 105 mmol/L (98-107); Glucose 83 mg/dl (70-99); Potassium 4.8 mmol/L (3.5-5.1); Sodium 140 mmol/L (135-145); eGFR 18.74
== END ==
LOC: REG 12:49
PROVIDERS: ATTENDING PHYSICIAN Specialist; FAMILY PHYSICIAN Internal Medicine; REFERRING PHYSICIAN Specialist
DX: I10 Essential (primary) hypertension (principal); D50.0 Iron deficiency anemia secondary to blood loss (chronic); N26.9 Renal sclerosis, unspecified; R60.9 Edema, unspecified; N18.4 Chronic kidney disease, stage 4 (severe)
CPT/HCPCS: 36415; 80069; 83970

== ENCOUNTER → 2025-03-07 09:30 | Outpatient (REF) | payer MEDICARE, SELFPAY ==
[2025-03-07 10:30] LABS: Albumin 4.0 g/dl (3.5-5.0); Blood Urea Nitrogen 55 mg/dl (9-20); Calcium 10.3 mg/dl (8.4-10.2); Carbon Dioxide 30 mmol/L (22-30); Chloride 104 mmol/L (98-107); Glucose 98 mg/dl (70-99); Potassium 4.6 mmol/L (3.5-5.1); Sodium 141 mmol/L (135-145); eGFR 18.74
== END ==
LOC: REG 09:30
PROVIDERS: ATTENDING PHYSICIAN Specialist; FAMILY PHYSICIAN Internal Medicine
DX: N18.4 Chronic kidney disease, stage 4 (severe) (principal); I10 Essential (primary) hypertension; D50.0 Iron deficiency anemia secondary to blood loss (chronic); N26.9 Renal sclerosis, unspecified; R60.9 Edema, unspecified
CPT/HCPCS: 36415; 80069; 83970

== ENCOUNTER → 2025-03-18 10:01 | Outpatient (REF) | payer MEDICARE, SELFPAY | LOC: SDSPAT 10:01 | PROVIDERS: ATTENDING PHYSICIAN Specialist; FAMILY PHYSICIAN Internal Medicine | DX: N40.1 Benign prostatic hyperplasia with lower urinary tract symptoms (principal) | CPT/HCPCS: 93005 ==

== ENCOUNTER 2025-03-22 06:24 | Day surgery (SDC) | payer MEDICARE, SELFPAY ==
[2025-03-18 10:20] VITALS: BMI 23.5
[2025-03-22] VITALS (23 sets, daily range): BP systolic 85–160; BP diastolic 45–76; BMI 23.5
[2025-03-22] MEDS: NORMOSOL-R/PLASMALYTE-A 1000 IV (11:10)
--- NOTE | 2025-03-22 12:58 | W.IMMPOSTOP ---
Surgical Immed Post Op Note
-
Primary Surgeon: Mitch
Assisting Surgeon: None
Pre-op Diagnosis: BPH, urine retention
Post-op Diagnosis: Same
Procedure Performed: TURP
Anesthesia Type: Spinal
Specimen / Cultures: None
Estimated Blood Loss: 5 ml
Complications: None
[2025-03-22 13:57] LABS: Blood Urea Nitrogen 62 mg/dl (9-20); Calcium 8.9 mg/dl (8.4-10.2); Carbon Dioxide 26 mmol/L (22-30); Chloride 108 mmol/L (98-107); Estimated Creatinine Clearance 20 ml/min; Glucose 96 mg/dl (70-99); Potassium 4.3 mmol/L (3.5-5.1); Sodium 139 mmol/L (135-145); eGFR 21.17
--- NOTE | 2025-03-22 16:02 | PTCARENOTE ---
pt admitted to 2S room 2108 at 1450 from the PACU via bed. pt oriented to room, call king, bed controls and plan of care with verbalized understanding. at bedside. Telemetry placed and reading SB w/1st degree AVB, prolonged QT in 40's. pt
denies dizziness, lightheadedness, chest pain or pressure. tolerating sips of water and assisted to order dinner. 3 way Hinojosa patent w/CBI infusing at moderate rate. output is pink tinged, no clots or drainage from catheter site. admission
database and assessment completed as documented. care ongoing.
[2025-03-22] MEDS: COLACE 100 MG PO (16:48)
[2025-03-22] MEDS: LR 1000 IV (16:49)
[2025-03-22] MEDS: SODIUM BICARBONATE 650 MG PO (20:31)
[2025-03-22] MEDS: ROCALTROL 0.25 MCG PO (20:31)
[2025-03-22] MEDS: ANCEF 5 IV (20:32)
[2025-03-22] MEDS: MYSOLINE 250 MG PO (20:33)
[2025-03-22] MEDS: FLOMAX 0.8 MG PO (21:39)
[2025-03-22] MEDS: NORVASC 10 MG PO (21:40)
[2025-03-22] MEDS: OCUVITE SOFTGEL 1 CAP PO (21:43)
[2025-03-23] VITALS (7 sets, daily range): BP systolic 118–176; BP diastolic 69–87
[2025-03-23 06:01] LABS: Hematocrit 28.5 % (39.0-52.0); Hemoglobin 9.7 g/dL (13.0-18.0); Mean Corp Hgb Conc. 34.0 g/dL (33.0-37.0); Mean Corpuscular Volume 95.3 fL (80.0-94.0); Platelet Count 158 10^3/uL (130-400); Red Cell Dist. Width 14.5 % (11.5-14.5)
[2025-03-23] MEDS: LR 1000 IV (06:11)
[2025-03-23 06:27] LABS: Blood Urea Nitrogen 58 mg/dl (9-20); Calcium 8.5 mg/dl (8.4-10.2); Carbon Dioxide 25 mmol/L (22-30); Chloride 109 mmol/L (98-107); Estimated Creatinine Clearance 21 ml/min; Glucose 94 mg/dl (70-99); Potassium 4.2 mmol/L (3.5-5.1); Sodium 138 mmol/L (135-145); eGFR 22.12
[2025-03-23] MEDS: COLACE 100 MG PO ×2 (08:31→11:58)
[2025-03-23] MEDS: SODIUM BICARBONATE 650 MG PO ×2 (08:31→21:50)
[2025-03-23] MEDS: ANCEF 5 IV ×2 (08:32→21:49)
[2025-03-23] MEDS: ROCALTROL 0.25 MCG PO ×2 (08:32→21:55)
[2025-03-23] MEDS: MYSOLINE 250 MG PO ×2 (08:32→21:51)
--- NOTE | 2025-03-23 08:38 | W.PN.SURGUPD ---
Surgical Update
Surgical Update
Stable 1 day s/p TURP
Labs good
Comfortable
Tolerating diet
Urine pale peach w/o clot
---
OOB
Stop CBI at 1800
--- NOTE | 2025-03-23 09:50 | CM ---
Cm reviewed medical records. Patient denied history of VN, SNF. Patient at time relies on a cane for ambulation 'when it's slippery outside'. Patient is active with his PCP. Patent uses [facility] for medication services.
PLAN: Home no needs.
[2025-03-23] MEDS: FEOSOL 325 MG PO (10:31)
[2025-03-23] MEDS: COLACE PO (17:32)
--- NOTE | 2025-03-23 18:21 | PTCARENOTE ---
CBI rate slowed during the shift, output is light pink, no clots noted. CBI discontinued at 1800 as ordered. CBI port plugged. pt OUT of bed with RN and ambulated [address] w/RW. pt assisted to return to bed. care ongoing.
[2025-03-23] MEDS: NORVASC 10 MG PO (21:50)
[2025-03-23] MEDS: OCUVITE SOFTGEL 1 CAP PO (21:50)
[2025-03-23] MEDS: FLOMAX 0.8 MG PO (21:50)
[2025-03-23] MEDS: LR IV (23:07)
[2025-03-23] MEDS: VALIUM INJECTION 2 MG IV (23:25)
--- NOTE | 2025-03-24 04:04 | PTCARENOTE ---
Pt disoriented to place and time at start of shift, pt is able to maintain conversation, stay on topic and make needs known. Pt initially easily reoriented; however, pt became increasingly agitated, uncooperative-continued to make several attempts
to get OOB. Pt is high fall risk due to unsteady gait & anne catheter tubing. At 2300 DIMENSIONAL INSPECTOR notified of change-See SEP. Pt became much more calm and cooperative following medical intervention. Repeated episode of confusion, uncooperativeness and
agitation around 0200. After education & therapeutic communication patient was agreeable to return back to bed and try to sleep through remainder of the night. Pt has not complained of pain or discomfort throughout shift, pt remains AAOx1. Bed alarm
& chair alarm in place and working, call king within reach, bed in lowest position & locked. Pt states no further needs at this time and is resting in bed.
--- NOTE | 2025-03-24 04:36 | PTCARENOTE ---
Resumed care of pt sleeping comfortably. HR in the 50's in SB with first degree heart block on the monitor. #24Fr [address], CBI capped since 1800 on 03/23. Pt voiding light pink colored urine. No issues to report at this time. Bed alarm in
place to ensure pt safety. Pt confused, OOBx1 with walker. Left forearm int capped. Will continue to monitor.
[2025-03-24 07:05] VITALS: BP 130/70
[2025-03-24] MEDS: MYSOLINE 250 MG PO (08:32)
[2025-03-24] MEDS: FEOSOL 325 MG PO (08:32)
[2025-03-24] MEDS: COLACE 100 MG PO ×2 (08:32→11:59)
[2025-03-24] MEDS: ANCEF 5 IV (08:32)
[2025-03-24] MEDS: ROCALTROL 0.25 MCG PO (08:32)
[2025-03-24] MEDS: SODIUM BICARBONATE 650 MG PO (08:32)
--- NOTE | 2025-03-24 09:44 | W.DS.TRANS ---
DC Summary - Graphic Design Specialist
-
Discharge Instructions:
Instructions:
Stand-Alone Forms:
Changes to Home Medications: No
Discharge Medications:
DC Medications w/original date entered in [facility]
ocwubskh-ajg-gheik4 250 mg-dha 90 mg-epa 160 jn-wsfs-quiu-zeax capsule (Ocuvite Adult 50 Plus) 1 cap PO HS #30 caps 08/01/22
primidone 250 mg tablet 250 mg PO BID #60 tabs 08/01/22
Lactobacillus acidophilus-Bifidobac.animalis 2.5 billion cell capsule (Daily Probiotic) 1 cap PO HS 03/15/25
amlodipine 5 mg tablet 10 mg PO HS 03/15/25
ascorbate calcium (vitamin C) 500 mg tablet 500 mg PO HS 03/15/25
calcitriol 0.25 mcg capsule 0.25 mcg PO BID 03/15/25
calcium 325 mg-vit D3 12.5 mcg-zinc 2.75 wd-evjfnt-dxwrytayy tablet (Citracal-D3 Maximum Plus) 1 - 2 tab PO DIRECTED 03/15/25
coenzyme Q10 30 mg capsule 60 mg PO HS 03/15/25
darbepoetin anthony in polysorbat 40 mcg/mL in polysorbate injection (Aranesp) 40 mcg SC DIRECTED 03/15/25
denosumab 60 mg/mL subcutaneous syringe (Prolia) 60 mg SC [id number] 03/15/25
ferrous sulfate 137 mg (45 mg iron) tablet,extended release 137 mg PO DAILY 03/15/25
nnnmkgky-iw-xqjcb 300 mcg-K 60 mcg-lycop 600 mcg-lutein 300 mcg tablet (Centrum Silver Men) 1 tab PO DAILY 03/15/25
sodium bicarbonate 650 mg tablet 650 mg PO BID 03/15/25
tamsulosin 0.4 mg capsule 0.8 mg PO HS 03/15/25
Home Medication Changes
Pending Results: No
[2025-03-24 11:10] VITALS: BP 144/78
--- NOTE | 2025-03-24 11:32 | CM ---
Patient seen at bedside
discharge today
Hinojosa removed
IMM explained & signed. In chart
PLAN: home, no needs
to transport
--- NOTE | 2025-03-24 14:00 | PTCARENOTE ---
Hinojosa removed at 0945. Patient voided 100 ml, bladder scanned for 387. Physician made aware. Patient is to void again before discharge. Patient and spouse made aware.
[2025-03-24 15:20] VITALS: BP 171/87
--- NOTE | 2025-03-24 15:57 | VNURNOTE ---
Rec'ed info that patient may need anne upon DC. Bladder scan pending. Liaison met with patient and spouse at bedside. Discussed [facility] nurse/therapy, visits, schedule and homebound status. Explained that visits at home will be 2-3 x per week to
assist with anne and medical management. Patient planned on going back to work next week. Homebound criteria further explained. Patient and spouse verbalized understanding and are only agreeable to VN if pt goes home w/ anne.
Patient is aware that [facility] will contact them for start of care day after discharge from . Provided contact number for [facility].
[facility] referral completed in [facility].
[2025-03-24] MEDS: COLACE PO (16:48)
== END 2025-03-24 17:28 | disposition home or self-care (01) ==
LOC: SDS 06:24
PROVIDERS: ATTENDING PHYSICIAN Specialist; FAMILY PHYSICIAN Internal Medicine
DX: N40.1 Benign prostatic hyperplasia with lower urinary tract symptoms (principal); R33.8 Other retention of urine; N18.9 Chronic kidney disease, unspecified
CPT/HCPCS: 52601; 80048; 85027; 88305

== ENCOUNTER 2025-04-07 13:53 | Emergency (ER) | payer MEDICARE, SELFPAY ==
[2025-04-07 13:58] VITALS: BP 135/66
[2025-04-07 14:51] VITALS: BP 107/65; BP 120/64; BP 124/81; PULSE 54; PULSE 57; PULSE 74
[2025-04-07 15:13] VITALS: BMI 22.1
[2025-04-07 15:14] VITALS: BP 126/77
--- NOTE | 2025-04-07 15:15 | ED.GENMED ---
History of Present Illness
<KAROLINA Hickey - Last Filed: 04/07/25 15:30>
General
Chief Complaint: Fall
Source: patient
Exam Limitations: none
Time Seen by Provider: 04/07/25 14:13
Nursing documentation reviewed up to this point in time: agreed with
History of Present Illness
History of Present Illness:
Patient is an 85 year old male with PMH of HTN, HLD, BPH, Colon CA, Skin CA, and TURP who presents to the ED for evaluation following multiple falls today. Patient reports 3 falls while golfing today with no head strike or LOC. Patient also admits
to episodes of unsteady gait and dizziness over the past several weeks. TURP was performed two weeks ago without complications. He last reports eating at 0700 today. He denies chest pain, shortness of breath, fever, chills, nausea, vomiting or
diarrhea.
<Tabatha Swenson DO - Last Filed: 04/07/25 17:33>
History of Present Illness
History of Present Illness:
Patient is an 85 year old male with PMH of HTN, HLD, BPH, Colon CA, Skin CA, and TURP who presents to the ED for evaluation following multiple falls today. Patient reports 3 falls while golfing today with no head strike or LOC. Reports that the
falls occurred after swinging the golf club, felt unsteady and fell backward x 3. Patient also admits to episodes of unsteady gait and dizziness over the past several weeks, particularly noticed when walking from his bedroom to his bathroom.. TURP
was performed two weeks ago without complications, 03/22. Denies any further hematuria. He last reports eating at 0700 today. Reports that he did not drink much fluid today. 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
come to the hospital for further assessment. He denies chest pain, shortness of breath, fever, chills, nausea, vomiting or diarrhea.
Past History
<KAROLINA Hickey - Last Filed: 04/07/25 15:30>
Past History
ED Past Medical History: Cancer (Basal cell carcinoma, colon cancer), HTN, Hypercholesterolemia, Seizures and Other (Mild renal insufficiency)
ED Past Surgical History: Bowel resection (Colon cancer 2002), Tonsilectomy and Urological (TURP)
Patient has exhibited threatening behavior?: No
Social History
Tobacco: Former smoker
Alcohol: None
Drug: None
Personal:
Living: with family
Employment: Employed
Family History
Family History: Other (Noncontributory)
Review of Systems
<Gwendolyn Gore [facility] - Last Filed: 04/07/25 15:30>
Review of Systems
Allergies reviewed?: Yes
All Other Systems: ROS reviewed and negative except as documented in HPI and ROS
Constitutional: Reports no symptoms
EENT: Reports no symptoms
Respiratory: Reports no symptoms
Cardiac: Reports no symptoms
ABD/GI: Reports no symptoms
: Reports no symptoms
Musculoskeletal: Reports no symptoms
Skin: Reports no symptoms
Neurological: Reports dizzy and weakness
Endocrine: Reports no symptoms
Hematologic/Lymphatic: Reports no symptoms
Psychiatric: Reports no symptoms
Phy Exam
<Gwendolyn Gore [facility] - Last Filed: 04/07/25 15:30>
General Physical Exam
General Presentation: no apparent distress
General age: appears stated age
General Skin: warm and dry
General Habitus: normal
General Mental: alert
Cardiovascular Exam
Cardiovascular Exam: normal peripheral pulses
Pulmonary Exam
Pulmonary Exam: lungs clear and no respiratory distress
Gastrointestinal Exam
Gastrointestinal Exam: normal bowel sounds, non tender and soft
Auscultation of Abdomen: normal
Neurological Exam
Neurological Exam: alert and oriented x3
Musculoskeletal Exam
Musculoskeletal Exam: full ROM
Skin Exam
Skin Exam: warm/dry
Psychiatric Exam
Psychiatric Exam: normal mood/affect
<Tabatha Swenson DO - Last Filed: 04/07/25 17:33>
Physical Exam
Physical Exam:
General: Well-appearing, no clinical signs of dehydration, nontoxic and in no acute distress
HEENT: protecting airway
Neck: appears supple
CV: Normal heart rate, regular rhythm
Resp: No accessory muscle use, no increased work of breathing, lungs clear to auscultation bilaterally
Abd: Soft and non-distended, no tenderness to palpation
Extremities: No deformities, no swelling
Neuro: alert, no focal neurologic deficit
: deferred
Rectal: deferred
Psych: Normal affect
Skin: Intact
Course
<Gwendolyn Gore [facility] - Last Filed: 04/07/25 15:30>
Orders/Labs/Results
Orders:
Orders
04/07/25 14:51
Electrocardiogram (*1) Urgent
Reason for Study: Vertigo / Dizzy
EKG- Treatment ONCE
Orthostatic VS- Treatment ONCE
04/07/25 15:08
CMP [Comprehensive Metabolic Panel] Urgent
Complete Blood Count/No Diff Urgent
04/07/25 15:20
0.9% Sodium Chloride 1000 ml [Nss] 1,000 ml IV BOLUS
04/07/25 15:22
CT Head W/o Iv Contrast Urgent
Comment:
Reason For Exam: balance issues
04/07/25 15:25
Troponin I Urgent
Abnormal Lab Results
04/07/25
15:08
RBC 2.79 L 10^6/uL
(4.70-6.10)
Hgb 9.2 L g/dL
(13.0-18.0)
Hct 27.4 L %
(39.0-52.0)
MCV 98.2 H fL
(80.0-94.0)
MCH 33.0 H pg
(27.0-31.0)
RDW 14.6 H %
(11.5-14.5)
BUN 63 H mg/dl
(9-20)
Creatinine 3.0 H mg/dL
(0.7-1.3)
04/07/25 15:08
04/07/25 15:08
Vital Signs
Initial and Last Documented VS:
Initial Vital Signs
Temp Pulse Resp BP Pulse Ox
98.3 F 60 18 135/66 96
04/07/25 13:58 04/07/25 13:58 04/07/25 13:58 04/07/25 13:58 04/07/25 13:58
Last Documented Vital Signs
Temp Pulse Resp BP Pulse Ox
98.3 F 50 11 133/62 98
04/07/25 13:58 04/07/25 16:00 04/07/25 16:00 04/07/25 16:00 04/07/25 16:00
<Tabatha Swenson, DO - Last Filed: 04/07/25 17:33>
Orders/Labs/Results
Orders:
Orders
04/07/25 14:51
Electrocardiogram (*1) Urgent
Reason for Study: Vertigo / Dizzy
EKG- Treatment ONCE
Orthostatic VS- Treatment ONCE
04/07/25 15:08
CMP [Comprehensive Metabolic Panel] Urgent
Complete Blood Count/No Diff Urgent
04/07/25 15:20
0.9% Sodium Chloride 1000 ml [Nss] 1,000 ml IV BOLUS
04/07/25 15:22
CT Head W/o Iv Contrast Urgent
Comment:
Reason For Exam: balance issues
04/07/25 15:25
Troponin I Urgent
Abnormal Lab Results
04/07/25
15:08
RBC 2.79 L 10^6/uL
(4.70-6.10)
Hgb 9.2 L g/dL
(13.0-18.0)
Hct 27.4 L %
(39.0-52.0)
MCV 98.2 H fL
(80.0-94.0)
MCH 33.0 H pg
(27.0-31.0)
RDW 14.6 H %
(11.5-14.5)
BUN 63 H mg/dl
(9-20)
Creatinine 3.0 H mg/dL
(0.7-1.3)
04/07/25 15:08
04/07/25 15:08
Vital Signs
Initial and Last Documented VS:
Initial Vital Signs
Temp Pulse Resp BP Pulse Ox
98.3 F 60 18 135/66 96
04/07/25 13:58 04/07/25 13:58 04/07/25 13:58 04/07/25 13:58 04/07/25 13:58
Last Documented Vital Signs
Temp Pulse Resp BP Pulse Ox
98.3 F 50 11 133/62 98
04/07/25 13:58 04/07/25 16:00 04/07/25 16:00 04/07/25 16:00 04/07/25 16:00
<KAROLINA Hickey - Last Filed: 04/07/25 15:30>
MDM/Problems Addressed
Differential Diagnosis Includes:
orthostatic hypotension
infectious etiology
vertigo
medication
arrhythmia
dehydration
vision/hearing changes
<Tabatha Swenson DO - Last Filed: 04/07/25 17:33>
MDM/Problems Addressed
Differential Diagnosis Includes:
85 year old male with PMH of HTN, HLD, BPH, Colon CA, Skin CA, and BPH status post TURP presenting after 3 falls with dizziness and unsteady gait. Vital signs on arrival are normal.
On exam patient is resting comfortably, no acute distress or discomfort. Benign cardiac and pulmonary exam. No focal neurologic deficits. Concern regarding multiple episodes of unprovoked falls. Does note that they occurred after swinging his
golf club, so vasovagal component is a consideration. Possible orthostatic hypotension versus volume depletion. Notes that he did not drink a lot of fluids today. Will obtain orthostatic vital signs. Arrhythmia and heart block is also
consideration. Will obtain EKG. Notes that he has been having an unsteady gait for the past 2 weeks. Will also obtain CT brain. Anemia is a consideration after TURP procedure. Will check CBC. Electrolyte derangement is a consideration as well
as acute kidney injury. Will obtain chemistry panel.
15:45 - EKG shows sinus bradycardia with first degree block, no evidence of complete heart block or ischemia. Orthostatics obtained, positive from sitting to standing. Could be contributing to patient's symptoms. Anemia appears to be at baseline.
Pending CT brain imaging
17:30 -CT head is negative. Labs show LEANNE, however appears to be at baseline. Recommended admission to the patient given frequent falls, report of unsteady gait. Patient is adamantly refusing. Did discuss with patient and at bedside risk of
going home without continued cardiac monitoring and potential cardiac consultation. Patient verbalized understanding, understanding of the risks. He will follow-up with his physician. Patient ambulated steadily. Return precautions discussed
<KAROLINA Hickey - Last Filed: 04/07/25 15:30>
*Pulse Oximetry
SaO2: 96
Oxygen Mode of Delivery: Room air
<Tabatha Swenson DO - Last Filed: 04/07/25 17:33>
*Pulse Oximetry
Patient hypoxic: no
*EKG
Interpreted by ED Provider?: Yes
EKG Intrepretation Date: 04/07/25
EKG Intrepretation Time: 15:48
Comparison EKG: no changes (03/18/25)
Heart Rate: 50
Rate: bradycardiac
Rhythm: sinus
[place]: normal axis
Interval: first degree heart block
QRS Pattern: normal QRS
Ischemia: no ischemia
*Critical Care Note
Total Time (30-74mins, 75-104mins- exclusive of procedures): Not Applicable
ED Attending Note
<KAROLINA Hickey - Last Filed: 04/07/25 15:30>
-
Portions of this chart may have been created with voice recognition software.� Occasional wrong word or��sound alike� substitutions may have occurred due to the inherent limitations of voice recognition software.
Discharge Plan
Departure
Prescriptions:
No Action
sodium bicarbonate 650 mg Tablet
650 mg PO BID
calcitriol 0.25 mcg Capsule
0.25 mcg PO BID
Aranesp (in polysorbate) 40 mcg/mL Solution
40 mcg SC DIRECTED
Rx Instructions:
NEXT INJECTION DOSE: 03/28/2025
Prolia 60 mg/mL Syringe
60 mg SC [id number]
Rx Instructions:
NEXT DOSE 04/2025
ferrous sulfate 137 mg (45 mg iron) Tablet Extended Release
137 mg PO DAILY
amlodipine 5 mg Tablet
10 mg PO HS
tamsulosin 0.4 mg Capsule
0.8 mg PO HS
Rx Instructions:
UNCONFIRMED DOSE
coenzyme Q10 30 mg Capsule
60 mg PO HS
Centrum Silver Men [id number] mcg Tablet
1 tab PO DAILY
Daily Probiotic 2.5 billion cell Capsule
1 cap PO HS
ascorbate calcium (vitamin C) 500 mg Tablet
500 mg PO HS
hugteua-K7-vvcn-copper-esther [Citracal-D3 Maximum Plus] 325 mg-12.5 mcg -2.75 mg Tablet
1 - 2 tab PO DIRECTED
Rx Instructions:
2 TAB - AM
1 TAB- NOON
2 TAB- PM
Ocuvite Adult 50 Plus 250 mg (90 mg-160 mg) Capsule
1 cap PO HS Qty: 30 0RF
primidone 250 MG tablet
250 mg PO BID Qty: 60 0RF
Referrals:
Eric Little DO [Family Provider, Internal Medicine]
Interventions
Interventions:
*Risk Screen - Suicide Last Done: 04/07/25 13:58
*General Assessment Last Done: 04/07/25 15:13
*Neglect/Abuse Screening Last Done: 04/07/25 13:58
*ED- Fall Risk Assessment Last Done: 04/07/25 15:13
*ED COVID-19 Vaccine History Last Done: 04/07/25 15:13
ED-Musculoskeletal Assessment Last Done: 04/07/25 15:13
ED- Neurological Assessment Last Done: 04/07/25 15:13
ED-Skin Assessment Last Done: 04/07/25 15:13
Discharge Date and Time
Print Language: CONGOLESE
[2025-04-07] MEDS: NSS 1000 IV (15:23)
[2025-04-07 15:34] LABS: Hematocrit 27.4 % (39.0-52.0); Hemoglobin 9.2 g/dL (13.0-18.0); Mean Corp Hgb Conc. 33.6 g/dL (33.0-37.0); Mean Corpuscular Volume 98.2 fL (80.0-94.0); Platelet Count 225 10^3/uL (130-400); Red Cell Dist. Width 14.6 % (11.5-14.5)
[2025-04-07 15:49] LABS: ALT (SGPT) 17 U/L (0-50); AST (SGOT) 25 U/L (17-59); Albumin 4.0 g/dl (3.5-5.0); Alkaline Phosphatase 54 U/L (38-126); Blood Urea Nitrogen 63 mg/dl (9-20); Calcium 10.0 mg/dl (8.4-10.2); Carbon Dioxide 28 mmol/L (22-30); Chloride 104 mmol/L (98-107); Estimated Creatinine Clearance 19 ml/min; Glucose 90 mg/dl (70-99); Potassium 4.7 mmol/L (3.5-5.1); Sodium 138 mmol/L (135-145); Total Protein 6.4 g/dl (6.3-8.2); eGFR 19.49
[2025-04-07 15:54] LABS: Troponin I 0.012 ng/ml
[2025-04-07 16:00] VITALS: BP 133/62
== END 2025-04-07 17:50 | disposition home or self-care (01) ==
LOC: EMR 13:53
PROVIDERS: EMERGENCY PHYSICIAN Student in an Organized Health Care Education/Training Program; FAMILY PHYSICIAN Internal Medicine
DX: R42 Dizziness and giddiness (principal); R29.6 Repeated falls; E78.00 Pure hypercholesterolemia, unspecified; I10 Essential (primary) hypertension; Z85.038 Personal history of other malignant neoplasm of large intestine; Z85.828 Personal history of other malignant neoplasm of skin; Z87.891 Personal history of nicotine dependence
CPT/HCPCS: 96360; 99284; 70450; 80053; 84484; 85027; 93005

== ENCOUNTER → 2025-04-20 13:25 | Outpatient (REF) | payer MEDICARE, SELFPAY ==
[2025-04-20 15:09] LABS: Hematocrit 31.7 % (39.0-52.0); Hemoglobin 10.2 g/dL (13.0-18.0); Mean Corp Hgb Conc. 32.2 g/dL (33.0-37.0); Mean Corpuscular Volume 101.0 fL (80.0-94.0); Nucleated Red Blood Cells % 0 % (-); Platelet Count 200 10^3/uL (130-400); Red Cell Dist. Width 15.0 % (11.5-14.5)
[2025-04-20 16:05] LABS: Albumin 4.2 g/dl (3.5-5.0); Blood Urea Nitrogen 58 mg/dl (9-20); Calcium 9.9 mg/dl (8.4-10.2); Carbon Dioxide 29 mmol/L (22-30); Chloride 102 mmol/L (98-107); Glucose 132 mg/dl (70-99); Iron 138 ug/dl (49-181); Potassium 4.8 mmol/L (3.5-5.1); Sodium 139 mmol/L (135-145); eGFR 18.74
[2025-04-20 16:14] LABS: Total Iron Binding Capacity 212 ug/dl (261-462)
[2025-04-20 16:37] LABS: Ferritin 107.0 ng/ml (17.9-464.0)
== END ==
LOC: REG 13:25
PROVIDERS: ATTENDING PHYSICIAN Specialist; FAMILY PHYSICIAN Internal Medicine; REFERRING PHYSICIAN Internal Medicine Hematology & Oncology
DX: R79.89 Other specified abnormal findings of blood chemistry (principal); N26.9 Renal sclerosis, unspecified; N18.4 Chronic kidney disease, stage 4 (severe); D63.1 Anemia in chronic kidney disease; D72.810 Lymphocytopenia; D50.0 Iron deficiency anemia secondary to blood loss (chronic)
CPT/HCPCS: 36415; 80069; 82728; 83540; 83550; 85025

== ENCOUNTER → 2025-05-03 12:26 | Outpatient (REF) | payer MEDICARE, SELFPAY | LOC: RCS 12:26 | PROVIDERS: ATTENDING PHYSICIAN Internal Medicine Cardiovascular Disease; FAMILY PHYSICIAN Internal Medicine | DX: I71.21 Aneurysm of the ascending aorta, without rupture (principal); I35.0 Nonrheumatic aortic (valve) stenosis | CPT/HCPCS: 93306 ==

== ENCOUNTER → 2025-06-13 09:07 | Outpatient (REF) | payer MEDICARE, SELFPAY | LOC: REG 09:07 | PROVIDERS: ATTENDING PHYSICIAN Internal Medicine Gastroenterology | DX: R19.7 Diarrhea, unspecified (principal) | CPT/HCPCS: 82653; 83993; 87045; 87046; 87077; 87324; 87328; 87329; 87427; 87449 ==

== ENCOUNTER → 2025-07-02 10:38 | Outpatient (REF) | payer MEDICARE, SELFPAY ==
[2025-07-02 11:16] LABS: Hematocrit 29.8 % (39.0-52.0); Hemoglobin 9.8 g/dL (13.0-18.0)
[2025-07-02 11:47] LABS: Albumin 4.1 g/dl (3.5-5.0); Blood Urea Nitrogen 60 mg/dl (9-20); Calcium 10.2 mg/dl (8.4-10.2); Carbon Dioxide 30 mmol/L (22-30); Chloride 103 mmol/L (98-107); Glucose 108 mg/dl (70-99); Potassium 4.1 mmol/L (3.5-5.1); Sodium 140 mmol/L (135-145); eGFR 18.74
== END ==
LOC: REG 10:38
PROVIDERS: ATTENDING PHYSICIAN Specialist; FAMILY PHYSICIAN Internal Medicine
DX: R79.89 Other specified abnormal findings of blood chemistry (principal); D63.1 Anemia in chronic kidney disease; N18.4 Chronic kidney disease, stage 4 (severe)
CPT/HCPCS: 36415; 80069; 83970; 85014; 85018